=== PATIENT | female | born 1950 | race Caucasian/White ===

== ENCOUNTER 2016-08-04 13:15 | Observation (INO) | payer BC, MEDICARE ==
[2016-08-04] MEDS ORDERED: Sodium Chloride 0.9% 2.5 ML Syringe FLUSH PRN (13:29)
[2016-08-04] MEDS ORDERED: Sodium Chloride 0.9% 10 ML Syringe FLUSH PRN (13:29)
[2016-08-04] MEDS ORDERED: Sodium Chloride 0.9% 500 ML IV SCH (13:30)
--- NOTE | 2016-08-04 13:32 | EDM.PDOC ---
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 Past medical history: As per history of present illness and as reviewed below otherwise noncontributory. Surgical history: As per history of present illness and as reviewed below otherwise noncontributory. Social history: No reported history of drug or alcohol abuse. Family history: As per history of present illness and as reviewed below otherwise noncontributory. Physical exam: HEENT: Atraumatic, normocephalic, pupils reactive, negative for conjunctival pallor or scleral icterus, mucous membranes moist, throat clear, neck supple, nontender, trachea midline. Lungs: Clear to auscultation, breath sounds equal bilaterally, chest nontender. Heart: S1S2, regular, negative for clicks, rubs, or JVD. Abdomen: Soft, nondistended, nontender. Negative for masses or hepatosplenomegaly. Negative for costovertebral tenderness. Pelvis: Stable nontender. Genitourinary: Deferred. Rectal: Deferred. Extremities: Atraumatic, negative for cords or calf pain. Neurovascular unremarkable. Neuro: Awake, alert, oriented. Cranial nerves II through XII unremarkable. Cerebellum unremarkable. Motor and sensory unremarkable throughout. Exam nonfocal. Diagnostics: CBC CMP PT/INR troponin EKG chest x-ray urine drug screen UA orthostatic vital signs Therapeutics: IV O2 monitor Impression: #1 near syncope #2 history of aortic stenosis #3 generalized weakness Definitive disposition and diagnosis as appropriate pending reevaluation and review of above. - Related Data Allergies Allergy/AdvReac Type Severity Reaction Status Date / Time No Known Allergies Allergy Unverified 08/04/16 13:26 Home Meds: Home Meds Hydrochlorothiazide 25 mg PO DAILY 02/25/15 [History] Latanoprost [Xalatan 0.005% Ophth Soln] 1 drop EYEBOTH BEDTIME 02/25/15 [History ] Hydrocodone/Acetaminophen [Allamuchy 5-325 Tablet] 1 each PO QID #30 tablet [Rx] Past Medical History HEENT History: Reports: Cataract, Impaired Vision, Retinal Detachment Other HEENT History: wears glasses, HX of Lichen Sclerosus Other Cardiovascular History: hx of aortic stenosis, moderate- asymptomatic Respiratory History: Reports: PE Other Respiratory History: states had PE following hysterectomy Gastrointestinal History: Reports: Cholelithiasis, Other (See Below) Other Gastrointestinal History: states occasional heartburn, takes TUMS Genitourinary History: Reports: Renal Calculus Other Genitourinary History: states passed kidney stone 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 Leonardo Raymundo in [facility] that her neck was "unstable" Neurological History: Reports: Other (See Below) Other Neuro History: occas. headaches/migranes...no treatment Psychiatric History: Reports: None Oncologic (Cancer) History: Reports: Breast Dermatologic History: Reports: Psoriasis Other Dermatologic History: states psoriasis is "mild" - Past Surgical History HEENT Surgical History: Reports: Cataract Surgery, Detached Retina Female Surgical History: Reports: Breast Biopsy, Section, Hysterectomy Social & Family History - Family History Family Medical History: Noncontributory - Tobacco Use Smoking Status *Q: Never Smoker - Recreational Drug Use Recreational Drug Use: No Drug Use in Last 12 Months: No ED ROS GENERAL - Review of Systems Review Of Systems: ROS reveals no pertinent complaints other than HPI. ED EXAM, GENERAL - Physical Exam Exam: See Below (See dictation) Course - Vital Signs Last Recorded V/S: Last Vital Signs Temp 36.7 C 08/04/16 13:26 Pulse 99 08/04/16 13:26 Resp 20 08/04/16 13:26 BP 193/91 H 08/04/16 13:26 Pulse Ox 98 08/04/16 13:26 Orthostatic Blood Pressure [ 176/77 Standing] Orthostatic Blood Pressure [ 150/72 Sitting] Orthostatic Blood Pressure [ 156/73 Supine] - Orders/Labs/Meds Orders: Active Orders 24 hr Category Date Time Status Patient Status [ADT] Stat ADT 08/04/16 15:04 Ordered Cardiac Monitoring [RC] . DIRECTED Care 08/04/16 13:28 Active EKG Documentation Completion [RC] STAT Care 08/04/16 13:28 Active Orthostatic Vital Signs [RC] ASDIRECTED Care 08/04/16 13:32 Active Oxygen Therapy, ED [RC] ASDIRECTED Care 08/04/16 13:28 Active Head wo Cont [CT] Stat Exams 08/04/16 13:28 Taken CULTURE URINE [RM] Stat Lab 08/04/16 15:03 Uncollected Sodium Chloride 0.9% [Normal Saline] 500 ml Med 08/04/16 13:30 Active IV STAT Sodium Chloride 0.9% [Saline Flush] Med 08/04/16 13:29 Active 10 ml FLUSH ASDIRECTED PRN Sodium Chloride 0.9% [Saline Flush] Med 08/04/16 13:29 Active 2.5 ml FLUSH ASDIRECTED PRN cefTRIAXone [Rocephin in Dextrose,Iso-Osm 1 GM/50 ML] 1 Med 08/04/16 15:04 Ordered gm Premix Bag 1 bag IV ONETIME Saline Lock Insert [OM.PC] Stat Oth 08/04/16 13:28 Ordered Medication Orders Sodium Chloride (Normal Saline) 500 mls @ 999 mls/hr IV STAT FRANKY Last Admin: 08/04/16 13:50 Dose: 999 mls/hr Ceftriaxone Sodium/Dextrose 1 (gm/ Premix) 50 mls @ 100 mls/hr IV ONETIME ONE Stop: 08/04/16 15:33 Sodium Chloride (Saline Flush) 10 ml FLUSH ASDIRECTED PRN PRN Reason: Keep Vein Open Sodium Chloride (Saline Flush) 2.5 ml FLUSH ASDIRECTED PRN PRN Reason: Keep Vein Open Labs: Laboratory Tests 08/04/16 08/04/16 08/04/16 Range/Units 13:25 13:25 13:25 WBC 9.80 (4.0-11.0) K/uL RBC 5.21 (4.30-5.90) M/uL Hgb 16.1 H (12.0-16.0) g/dL Hct 45.8 (36.0-46.0) % MCV 87.9 (80.0-98.0) fL MCH 30.9 (27.0-32.0) pg MCHC 35.2 (31.0-37.0) g/dL RDW Std Deviation 42.3 (28.0-62.0) fl RDW Coeff of [place] 13 (11.0-15.0) % Plt Count 202 (150-400) K/uL MPV 10.60 (7.40-12.00) fL Neut % (Auto) 71.7 (48.0-80.0) % Lymph % (Auto) 20.8 (16.0-40.0) % [place] % (Auto) 6.3 (0.0-15.0) % Eos % (Auto) 1.0 (0.0-7.0) % Baso % (Auto) 0.2 (0.0-1.5) % Neut # (Auto) 7.0 H (1.4-5.7) K/uL Lymph # (Auto) 2.0 (0.6-2.4) K/uL [place] # (Auto) 0.6 (0.0-0.8) K/uL Eos # (Auto) 0.1 (0.0-0.7) K/uL Baso # (Auto) 0.0 (0.0-0.1) K/uL Nucleated RBC % 0.0 /100WBC Nucleated RBCs # 0 K/uL INR 0.95 (0.86-1.11) Sodium 139 (136-146) mmol/L Potassium 3.8 (3.5-5.1) mmol/L Chloride 106 (98-110) mmol/L Carbon Dioxide 23 (21-31) mmol/L BUN 18 (6.0-23.0) mg/dL Creatinine 0.9 (0.6-1.5) mg/dL Est Cr Clr Drug Dosing 43.57 mL/min Estimated GFR (MDRD) > 60.0 ml/min Glucose 96 (60-110) mg/dL Calcium 9.3 (8.8-10.8) mg/dL Total Bilirubin 0.8 (0.1-1.5) mg/dL AST 19 (5-40) IU/L ALT 18 (8-54) IU/L Alkaline Phosphatase 61 (40-150) Troponin I (0.0-0.29) NG/ML Total Protein 7.4 (6.0-8.0) g/dL Albumin 4.3 (3.4-4.8) g/dL Globulin 3.1 (2.0-3.5) g/dL Albumin/Globulin Ratio 1.4 (1.3-2.8) Urine Color Urine Appearance Urine pH (5.0-8.0) Ur Specific [place] (1.001-1.035) Urine Protein (NEGATIVE) mg/dL Urine Glucose (UA) (NEGATIVE) mg/dL Urine Ketones (NEGATIVE) mg/dL Urine Occult Blood (NEGATIVE) Urine Nitrite (NEGATIVE) Urine Bilirubin (NEGATIVE) Urine Urobilinogen (<2.0) EU/dL Ur Leukocyte Esterase (NEGATIVE) Urine RBC (0-2/HPF) Urine WBC (0-5/HPF) Ur Epithelial Cells (NONE-FEW) Urine Bacteria (NEGATIVE) Urine Opiates Screen (NEGATIVE) Ur Oxycodone Screen (NEGATIVE) Urine Methadone Screen (NEGATIVE) Ur Barbiturates Screen (NEGATIVE) Ur Phencyclidine Scrn (NEGATIVE) Ur Amphetamine Screen (NEGATIVE) U Methamphetamines Scrn (NEGATIVE) U Benzodiazepines Scrn (NEGATIVE) U Cocaine Metab Screen (NEGATIVE) U Marijuana (THC) Screen (NEGATIVE) 08/04/16 08/04/16 08/04/16 Range/Units 13:25 13:48 13:48 WBC (4.0-11.0) K/uL RBC (4.30-5.90) M/uL Hgb (12.0-16.0) g/dL Hct (36.0-46.0) % MCV (80.0-98.0) fL MCH (27.0-32.0) pg MCHC (31.0-37.0) g/dL RDW Std Deviation (28.0-62.0) fl RDW Coeff of [place] (11.0-15.0) % Plt Count (150-400) K/uL MPV (7.40-12.00) fL Neut % (Auto) (48.0-80.0) % Lymph % (Auto) (16.0-40.0) % [place] % (Auto) (0.0-15.0) % Eos % (Auto) (0.0-7.0) % Baso % (Auto) (0.0-1.5) % Neut # (Auto) (1.4-5.7) K/uL Lymph # (Auto) (0.6-2.4) K/uL [place] # (Auto) (0.0-0.8) K/uL Eos # (Auto) (0.0-0.7) K/uL Baso # (Auto) (0.0-0.1) K/uL Nucleated RBC % /100WBC Nucleated RBCs # K/uL INR (0.86-1.11) Sodium (136-146) mmol/L Potassium (3.5-5.1) mmol/L Chloride (98-110) mmol/L Carbon Dioxide (21-31) mmol/L BUN (6.0-23.0) mg/dL Creatinine (0.6-1.5) mg/dL Est Cr Clr Drug Dosing mL/min Estimated GFR (MDRD) ml/min Glucose (60-110) mg/dL Calcium (8.8-10.8) mg/dL Total Bilirubin (0.1-1.5) mg/dL AST (5-40) IU/L ALT (8-54) IU/L Alkaline Phosphatase (40-150) Troponin I < 0.10 (0.0-0.29) NG/ML Total Protein (6.0-8.0) g/dL Albumin (3.4-4.8) g/dL Globulin (2.0-3.5) g/dL Albumin/Globulin Ratio (1.3-2.8) Urine Color YELLOW Urine Appearance CLEAR Urine pH 5.5 (5.0-8.0) Ur Specific [place] 1.025 (1.001-1.035) Urine Protein 30 (NEGATIVE) mg/dL Urine Glucose (UA) NEGATIVE (NEGATIVE) mg/dL Urine Ketones NEGATIVE (NEGATIVE) mg/dL Urine Occult Blood SMALL H (NEGATIVE) Urine Nitrite NEGATIVE (NEGATIVE) Urine Bilirubin NEGATIVE (NEGATIVE) Urine Urobilinogen 0.2 (<2.0) EU/dL Ur Leukocyte Esterase MODERATE (NEGATIVE) Urine RBC 4-6 (0-2/HPF) Urine WBC 20-25 (0-5/HPF) Ur Epithelial Cells FEW (NONE-FEW) Urine Bacteria FEW (NEGATIVE) Urine Opiates Screen NEGATIVE (NEGATIVE) Ur Oxycodone Screen NEGATIVE (NEGATIVE) Urine Methadone Screen NEGATIVE (NEGATIVE) Ur Barbiturates Screen NEGATIVE (NEGATIVE) Ur Phencyclidine Scrn NEGATIVE (NEGATIVE) Ur Amphetamine Screen NEGATIVE (NEGATIVE) U Methamphetamines Scrn NEGATIVE (NEGATIVE) U Benzodiazepines Scrn NEGATIVE (NEGATIVE) U Cocaine Metab Screen NEGATIVE (NEGATIVE) U Marijuana (THC) Screen NEGATIVE (NEGATIVE) Meds: Medications Generic Name Dose Route Start Last Admin Trade Name Freq PRN Reason Stop Dose Admin Sodium Chloride 500 mls @ 999 mls/hr 08/04/16 13:30 08/04/16 13:50 Normal Saline IV 999 mls/hr STAT FRANKY Administration Ceftriaxone Sodium/Dextrose 1 50 mls @ 100 mls/hr 08/04/16 15:04 gm/ Premix IV 08/04/16 15:33 ONETIME ONE Sodium Chloride 10 ml 08/04/16 13:29 Saline Flush FLUSH ASDIRECTED PRN Keep Vein Open Sodium Chloride 2.5 ml 08/04/16 13:29 Saline Flush FLUSH ASDIRECTED PRN Keep Vein Open Departure - Departure Time of Disposition: 15:05 Disposition: Refer to Observation Condition: Good Clinical Impression: Near syncope, UTI (urinary tract infection), Generalized weakness Forms: ED Department Discharge - My Orders Last 24 Hours: My Active Orders 08/04/16 13:28 Cardiac Monitoring [RC] . DIRECTED EKG Documentation Completion [RC] STAT Oxygen Therapy, ED [RC] ASDIRECTED Head wo Cont [CT] Stat Saline Lock Insert [OM.PC] Stat 08/04/16 13:29 Sodium Chloride 0.9% [Saline Flush] 10 ml FLUSH ASDIRECTED PRN Sodium Chloride 0.9% [Saline Flush] 2.5 ml FLUSH ASDIRECTED PRN 08/04/16 13:30 Sodium Chloride 0.9% [Normal Saline] 500 ml IV STAT 08/04/16 13:32 Orthostatic Vital Signs [RC] ASDIRECTED 08/04/16 15:03 CULTURE URINE [RM] Stat 08/04/16 15:04 Patient Status [ADT] Stat cefTRIAXone [Rocephin in Dextrose,Iso-Osm 1 GM/50 ML] 1 gm Premix Bag 1 bag IV ONETIME - Assessment/Plan Last 24 Hours: My Active Orders 08/04/16 13:28 Cardiac Monitoring [RC] . DIRECTED EKG Documentation Completion [RC] STAT Oxygen Therapy, ED [RC] ASDIRECTED Head wo Cont [CT] Stat Saline Lock Insert [OM.PC] Stat 08/04/16 13:29 Sodium Chloride 0.9% [Saline Flush] 10 ml FLUSH ASDIRECTED PRN Sodium Chloride 0.9% [Saline Flush] 2.5 ml FLUSH ASDIRECTED PRN 08/04/16 13:30 Sodium Chloride 0.9% [Normal Saline] 500 ml IV STAT 08/04/16 13:32 Orthostatic Vital Signs [RC] ASDIRECTED 08/04/16 15:03 CULTURE URINE [RM] Stat 08/04/16 15:04 Patient Status [ADT] Stat cefTRIAXone [Rocephin in Dextrose,Iso-Osm 1 GM/50 ML] 1 gm Premix Bag 1 bag IV ONETIME
[2016-08-04 14:01] LABS: CHLORIDE,CL 106 mmol/L (98-110); SODIUM,NA 139 mmol/L (136-146)
--- NOTE | 2016-08-04 14:33 | CR ---
EXAMINATION: Portable chest radiograph. HISTORY: Shortness of breath. FINDINGS: The trachea is midline. The cardiomediastinal silhouette is within normal limits. No pulmonary infil trates, effusions or pneumothorax. Osseous structures appear unremarkable. IMPRESSION: No acute cardiopulmonary process.
[2016-08-04] MEDS ORDERED: cefTRIAXone 1 GM in Premix Bag 1 BAG IV SCH (15:00)
[2016-08-04] MEDS ORDERED: cefTRIAXone 1 GM in Premix Bag 1 BAG IV ONE (15:04)
--- NOTE | 2016-08-04 15:14 | CT ---
EXAMINATION: Non contrast CT head. Coronal and sagittal reformats. HISTORY: Pain FINDINGS: There is an approximate 2.1 cm right frontal mass anteriorly and medially. There is adjacent white m atter gliosis. Ventricles and sulci are symmetric. No hypoattenuation changes in the major vascular territories to suggest acute infarct. No abnormal intracranial calcifications are detected. No evidence of substantial vascular calcifica tions. Paranasal sinuses and mastoid air cells are well aerated without substantial findings. The orbits a nd globes are symmetric. Pituitary fossa appears unremarkable. Calvarium is intact. No evidence of skull fracture. IMPRESSION: 1. There is a 2.1 cm right frontal lobe mass with adjacent gliosis. 2. Otherwise no acute intracranial findings.
--- NOTE | 2016-08-04 17:08 | PCM.HP ---
H&P History of Present Illness - History of Present Illness Initial Comments - Free Text/Narative: 65 yo female who presented with dizziness. At an office libertarian while standing she felt dizzy and lightheaded. She had some confusion and was unable to move. Coworkers helped her to her car and drove her to the ED. IN the ED she was noted to have stable vital signs, normal orthostatic vital signs. CT of her head reported 2 cm mass in right frontal lobe She has a history of breast cancer a year ago with masterctomy and hormonal therapy. She had an Echocardiogram in Jan 2015 which reported LVEF of 65% and moderate aortic stenossi - Related Data Allergies/Adverse Reactions: Allergies Allergy/AdvReac Type Severity Reaction Status Date / Time No Known Allergies Allergy Unverified 08/04/16 13:26 Home Medications: Home Meds Hydrochlorothiazide 25 mg PO DAILY 02/25/15 [History] Latanoprost [Xalatan 0.005% Ophth Soln] 1 drop EYEBOTH BEDTIME 02/25/15 [History ] Alendronate [Fosamax] 1 tab PO WEEKLY 08/04/16 [History] Anastrozole [Arimidex] 1 tab PO DAILY 08/04/16 [History] Celecoxib 200 mg PO DAILY PRN 08/04/16 [History] Cephalexin [Keflex] 500 mg PO Q12H #12 capsule 08/05/16 [Rx] Past Medical History HEENT History: Reports: Cataract, Impaired Vision, Retinal Detachment Other HEENT History: wears glasses, HX of Lichen Sclerosus Cardiovascular History: Reports: Hypertension Other Cardiovascular History: hx of aortic stenosis, moderate- asymptomatic Respiratory History: Reports: PE Other Respiratory History: states had PE following hysterectomy Gastrointestinal History: Reports: Cholelithiasis, Other (See Below) Other Gastrointestinal History: states occasional heartburn, takes TUMS Genitourinary History: Reports: Renal Calculus Other Genitourinary History: states passed kidney stone 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 Leonardo Raymundo in [facility] that her neck was "unstable" Neurological History: Reports: Other (See Below) Other Neuro History: occas. headaches/migranes...no treatment Psychiatric History: Reports: None Oncologic (Cancer) History: Reports: Breast Dermatologic History: Reports: Psoriasis Other Dermatologic History: states psoriasis is "mild" - Past Surgical History Head Surgeries/Procedures: Reports: None HEENT Surgical History: Reports: Cataract Surgery, Detached Retina Female Surgical History: Reports: Breast Biopsy, Section, Hysterectomy Social & Family History - Family History Family Medical History: Noncontributory - Tobacco Use Smoking Status *Q: Never Smoker Second Hand Smoke Exposure: No - Caffeine Use Caffeine Use: Reports: Coffee - Recreational Drug Use Recreational Drug Use: No Drug Use in Last 12 Months: No H&P Review of Systems - Review of Systems: Review Of Systems: ROS reveals no pertinent complaints other than HPI. Exam - Exam Exam: See Below - Vital Signs Vital Signs: Last Vital Signs Temp 36.4 C 08/04/16 16:30 Pulse 72 08/04/16 16:30 Resp 18 08/04/16 16:30 BP 157/77 H 08/04/16 16:30 Pulse Ox 96 08/04/16 16:30 Weight: 70.715 kg - Exam General: Alert, Oriented, 4 Neck: Supple, Trachea Midline. No: JVD Lungs: Clear to Auscultation, Normal Respiratory Effort Cardiovascular: Regular Rate, Regular Rhythm Abdomen: Normal Bowel Sounds, Soft Extremities: Normal Inspection Skin: Warm, Dry, Intact Neurological: Cranial Nerves Intact, Reflexes Equal Bilateral - Patient Data Result Diagrams: 08/04/16 13:25 08/04/16 13:25 *Q Meaningful Use (ADM) - VTE *Q VTE Criteria *Q: - Stroke *Q Stroke Criteria *Q: - AMI *Q AMI Criteria *Q: Problem List Initiated/Reviewed/Updated: Yes Orders Last 24hrs: Active Orders 24 hr Category Date Time Status Antiembolic Devices [RC] PER UNIT ROUTINE Care 08/04/16 16:58 Ordered Intake and Output [RC] QSHIFT Care 08/04/16 16:57 Ordered Oxygen Therapy [RC] PRN Care 08/04/16 16:57 Ordered Up ad Ramya [RC] ASDIRECTED Care 08/04/16 16:57 Ordered VTE/DVT Education [RC] PER UNIT ROUTINE Care 08/04/16 16:57 Ordered Vital Signs [RC] Q4H Care 08/04/16 16:57 Ordered Regular Diet [DIET] Diet 08/04/16 Breakfast Ordered Brain w wo Cont [MR] Routine Exams 08/04/16 16:21 Ordered Echo 2D wo Cont [US] Routine Exams 08/04/16 16:55 Ordered cefTRIAXone [Rocephin in Dextrose,Iso-Osm 1 GM/50 ML] 1 Med 08/04/16 15:00 Ordered gm Premix Bag 1 bag IV Q24H Sequential Compression Device [OM.PC] Per Unit Routine Oth 08/04/16 16:57 Ordered Resuscitation Status Routine Resus Stat 08/04/16 16:57 Ordered Medication Orders Sodium Chloride (Normal Saline) 500 mls @ 999 mls/hr IV STAT FRANKY Last Admin: 08/04/16 13:50 Dose: 999 mls/hr Ceftriaxone Sodium/Dextrose 1 (gm/ Premix) 50 mls @ 100 mls/hr IV Q24H FRANKY Sodium Chloride (Saline Flush) 10 ml FLUSH ASDIRECTED PRN PRN Reason: Keep Vein Open Sodium Chloride (Saline Flush) 2.5 ml FLUSH ASDIRECTED PRN PRN Reason: Keep Vein Open Assessment/Plan Comment:: 65 yo female admitted for near syncope. Symptoms do not appear to be seizure like. We will monitor overnight on telemetry and get echocardiogram. Patient has received Rocephin for UTI. Will get MRI to evaluated brain mass. MRI reports 3.4 cm dural based mass right frontal fossa consistent wiht meningioma, mild mass effect and edema within the right frontal lobe. no midline shift. Patient was monitored overnight without any events on telemetry and remains asymptomatic. We will discharge patient home to have follow up with Dr. Bell. Report from Echocardiogram is still pending. A referral to [facility] Neurosurgeon was made for follow up of the meningioma
[2016-08-04] MEDS ORDERED: LORazepam 0.5 MG Tab PO ONE (17:56)
[2016-08-04] MEDS ORDERED: Gadobenate Dimeglumine 529 MG/ML 20 ML SDV IVPUSH STA (18:33)
[2016-08-05 09:36] VITALS: BP 139/65
--- NOTE | 2016-08-05 13:31 | MR ---
EXAM DATE: 08/04/16 PATIENT'S AGE: 65 Patient: JOHN GOMEZ Facility: [place], [place] Site . Site : [id number] Study: MRI Head W/ and W/O Cont [id number]/29/2017 7:17:42 PM Ordering Physician: Elmer Galicia Final Report: Indication: 65-year-old female with intracranial mass. Technique: 3D T1 weighted gradient echo sequences before and after infusion of gadolinium contrast with sagittal axial and coronal reformatted images, axial 2D FLAIR, T2 , diffusion-weighted, susceptibility weighted images of the entire brain. Findings: There is a well circumscribed extra-axial mass in the right frontal fossa with a broad dural base along the anterior falx as well as the anterior convexity dura. This mass measures 3.4 cm cephalocaudal by 2.2 cm transverse by 2.2 cm in AP dimension. It enhances intensely with contrast material, slightly brighter than brain on T2 FLAIR and relatively hypointense on T1 weighted images. There is mass effect with buckling of the adjacent white matter enhancing dural tail with features consistent with meningioma. There is mild amount of adjacent edema extending back toward the frontal horn. There is slight deformity of the frontal horn of the but no midline shift. No hydrocephalus. The mass abuts but does not appear to invade the anterior most portion of the superior sagittal sinus. No other enhancing intra-axial or extra-axial lesions. No evidence of intracranial hemorrhage no evidence of acute infarction. The brainstem and cerebellum appear normal. The orbits and skull base are unremarkable there is some inflammatory mucosal thickening in the maxillary sinuses. Impression : 1. 3.4 cm maximal diameter extra-axial, dural based mass right frontal fossa consistent with meningioma likely attached to the anterior falx and/or convexity dura. 2. Mild mass effect and edema within the right frontal lobe. No midline shift. This report is transcribed using [id number] software. As a result there may be grammatical errors and/or unintentional word substitutions. Dictated by Gurjit Victoria MD @ Aug 05 2016 8:48AM (Electronic Signature) Report Signed by Proxy. EFRAIN
--- NOTE | 2016-08-11 11:49 | ECHO ---
EXAM DATE: 08/04/16 PATIENT'S AGE: 65 The echocardiogram report can be seen in this patient's EMR (Electronic Medical Records) in the Reports section. The report has also been scanned into PACS. EFRAIN
== END 2016-08-05 11:15 | disposition home or self-care (01) ==
LOC: MW.ED 13:15 → MW.MS 16:08
PROVIDERS: ADMIT Internal Medicine; ATTEND Internal Medicine
DX: R55 Syncope and collapse (principal); N39.0 Urinary tract infection, site not specified; R22.0 Localized swelling, mass and lump, head; I10 Essential (primary) hypertension; M19.90 Unspecified osteoarthritis, unspecified site; Z79.811 Long term (current) use of aromatase inhibitors; Z79.899 Other long term (current) drug therapy; Z85.3 Personal history of malignant neoplasm of breast; Z86.711 Personal history of pulmonary embolism; Z87.442 Personal history of urinary calculi; Z90.710 Acquired absence of both cervix and uterus; Z98.890 Other specified postprocedural states
CPT/HCPCS: 36415; 70450; 70553; 71010; 80053; 80305; 81001; 84484; 85025; 85610; 87086; 93005; 93306; 96365; 99285; A9270; A9577; G0378; J0696; J7040

== ENCOUNTER 2018-02-21 11:19 | Emergency (ER) | payer MEDICARE, BC ==
--- NOTE | 2018-02-21 11:23 | EDM.PDOC ---
ED HPI GENERAL MEDICAL PROBLEM - General Chief Complaint: Upper Extremity Injury/Pain Stated Complaint: SWOLLEN RIGHT HAND Time Seen by Provider: 02/21/18 11:21 Source of Information: Reports: Patient History Limitations: Reports: No Limitations - History of Present Illness INITIAL COMMENTS - FREE TEXT/NARRATIVE: HISTORY AND PHYSICAL: Right wrist injury History of present illness: Patient is a 67-year-old female who presents to the emergency room with complaints of right wrist pain. Patient states that while trying to get out of bed she had slipped onto the floor and had reached out with her right hand to catch herself. She denies hitting her head or any loss of consciousness. Soft tissue swelling, pain with palpation and ROM. Review of systems: As per history of present illness and below otherwise all systems reviewed and negative. Past medical history: As per history of present illness and as reviewed below otherwise noncontributory. Surgical history: As per history of present illness and as reviewed below otherwise noncontributory. Social history: See social history for further information Family history: As per history of present illness and as reviewed below otherwise noncontributory. Physical exam: General: Well-developed and well-nourished 67-year-old female. Alert and oriented. Nontoxic appearing and in no acute distress. HEENT: Atraumatic, normocephalic, pupils equal and reactive bilaterally, negative for conjunctival pallor or scleral icterus, mucous membranes moist, throat clear, neck supple, nontender, trachea midline. No drooling or trismus noted. No meningeal signs Lungs: Clear to auscultation, breath sounds equal bilaterally, chest nontender. Heart: S1S2, regular rate and rhythm without overt murmur Abdomen: Soft, nondistended, nontender. Negative for masses or hepatosplenomegaly. Negative for costovertebral tenderness. Pelvis: Stable nontender. Genitourinary: Deferred. Rectal: Deferred. Skin: Soft tissue swelling and early bruising noted to the radial aspect of right wrist. Otherwise skin is intact, warm, dry. No lesions or rashes noted. Extremities: Soft tissue swelling noted to the radial aspect of the right wrist. Pain with palpation throughout the radial and ulnar aspect of the wrist. Strong radial pulse. Capillary refill less than 3 seconds. Good CMS. Strong and equal strength to the upper extremity bilaterally. She is negative for cords or calf pain. Neurovascular unremarkable. Neuro: Awake, alert, oriented. Cranial nerves II through XII unremarkable. Cerebellum unremarkable. Motor and sensory unremarkable throughout. Exam nonfocal. Notes: X-ray shows likely a nondisplaced distal radial fracture however possibly old. The alignment is normal and otherwise spacing and joints are preserved. Due to the patient's tenderness and soft tissue swelling and to treat as a new fracture. Fiberglass custom splint applied. Fitted with a sling. Supportive care measures were reviewed and discussed. I did encourage the patient to call today, to set up a follow-up appointment with the orthopedic provider. She voices understanding and is agreeable to plan of care. Denies any further questions or concerns at this time. Diagnostics: X-ray Therapeutics: Toradol Prescription: Tramadol (#15) Impression: Nondisplaced distal radius fracture, right Plan: 1. Please keep the splint on and use the sling to keep the extremity elevated. Rest and ice the area as able. 2. Tylenol and/or ibuprofen as needed for pain management. Tramadol for nighttime use. This medication may cause drowsiness so do not take it will driving her needing to be functioning outside of the house. 3. Please call the orthopedic provider today to set up a follow-up appointment. Return to the ED as needed and as discussed. Definitive disposition and diagnosis as appropriate pending reevaluation and review of above. Onset: Today Duration: Hour(s): - Related Data Allergies Allergy/AdvReac Type Severity Reaction Status Date / Time No Known Allergies Allergy Verified 02/21/18 11:32 Home Meds: Home Meds Hydrochlorothiazide 25 mg PO DAILY 02/25/15 [History] Latanoprost [Xalatan 0.005% Ophth Soln] 1 drop EYEBOTH BEDTIME 02/25/15 [History ] Alendronate [Fosamax] 1 tab PO WEEKLY 08/04/16 [History] Anastrozole [Arimidex] 1 tab PO DAILY 08/04/16 [History] Celecoxib 200 mg PO DAILY PRN 08/04/16 [History] Cephalexin [Keflex] 500 mg PO Q12H #12 capsule 08/05/16 [Rx] Past Medical History HEENT History: Reports: Cataract, Impaired Vision, Retinal Detachment Other HEENT History: wears glasses, HX of Lichen Sclerosus Cardiovascular History: Reports: Hypertension Other Cardiovascular History: hx of aortic stenosis, moderate- asymptomatic Respiratory History: Reports: PE Other Respiratory History: states had PE following hysterectomy Gastrointestinal History: Reports: Cholelithiasis, Other (See Below) Other Gastrointestinal History: states occasional heartburn, takes TUMS Genitourinary History: Reports: Renal Calculus Other Genitourinary History: states passed kidney stone NEUROLOGY TECH History: Reports: Musculoskeletal History: Reports: Arthritis, Fracture, Neck Pain, Chronic, Osteoarthritis Other Musculoskeletal History: states osteoarthritis of of hip, degenerative disc disease of neck, hx of bilateral fx wrists, was told by Dr. Leonardo Raymundo in [facility] that her neck was "unstable" Neurological History: Reports: Other (See Below) Other Neuro History: occas. headaches/migranes...no treatment Psychiatric History: Reports: None Oncologic (Cancer) History: Reports: Breast Dermatologic History: Reports: Psoriasis Other Dermatologic History: states psoriasis is "mild" - Past Surgical History Head Surgeries/Procedures: Reports: None HEENT Surgical History: Reports: Cataract Surgery, Detached Retina Female Surgical History: Reports: Breast Biopsy, Section, Hysterectomy Social & Family History - Family History Family Medical History: Noncontributory - Caffeine Use Caffeine Use: Reports: Coffee Review of Systems - Review of Systems Review Of Systems: ROS reveals no pertinent complaints other than HPI. ED EXAM, GENERAL - Physical Exam Exam: See Below (See dictation) Course - Vital Signs Last Recorded V/S: Last Vital Signs Temp 97.5 F 02/21/18 11:29 Pulse 76 02/21/18 11:29 Resp 16 02/21/18 11:29 BP 153/66 H 02/21/18 11:29 Pulse Ox 99 02/21/18 11:29 - Orders/Labs/Meds Meds: Medications Discontinued Medications Generic Name Dose Route Start Last Admin Trade Name Freq PRN Reason Stop Dose Admin Ketorolac Tromethamine 30 mg 02/21/18 11:35 02/21/18 11:57 Toradol IM 02/21/18 11:36 30 mg ONETIME ONE Administration Ketorolac Tromethamine 30 mg 02/21/18 12:00 Toradol IM 02/21/18 12:01 ONETIME ONE Departure - Departure Time of Disposition: 12:09 Disposition: Home, Self-Care 01 Clinical Impression: Distal radius fracture, right Qualifiers: Encounter type: initial encounter Fracture type: closed Fracture morphology: unspecified fracture morphology Qualified Code(s): S52.501A - Unspecified fracture of the lower end of right radius, initial encounter for closed fracture - Discharge Information Forms: ED Department Discharge Additional Instructions: The following information is given to patients seen in the emergency department who are being discharged to home. This information is to outline your options for follow-up care. We provide all patients seen in our emergency department with a follow-up referral. The need for follow-up, as well as the timing and circumstances, are variable depending upon the specifics of your emergency department visit. If you don't have a primary care physician on staff, we will provide you with a referral. We always advise you to contact your personal physician following an emergency department visit to inform them of the circumstance of the visit and for follow-up with them and/or the need for any referrals to a consulting specialist. The emergency department will also refer you to a specialist when appropriate. This referral assures that you have the opportunity for follow-up care with a specialist. All of these measure are taken in an effort to provide you with optimal care, which includes your follow-up. Under all circumstances we always encourage you to contact your private physician who remains a resource for coordinating your care. When calling for follow-up care, please make the office aware that this follow-up is from your recent emergency room visit. If for any reason you are refused follow-up, please contact the [facility] Emergency Department at and asked to speak to the emergency department charge nurse. [facility] Specialty Care - Orthopedic Clinic Professional Building [address] [place] [address], [address] [place] [address] 1. Please keep the splint on and use the sling to keep the extremity elevated. Rest and ice the area as able. 2. Tylenol and/or ibuprofen as needed for pain management. Tramadol for nighttime use. This medication may cause drowsiness so do not take it will driving her needing to be functioning outside of the house. 3. Please call the orthopedic provider today to set up a follow-up appointment. Return to the ED as needed and as discussed.
[2018-02-21] MEDS ORDERED: Ketorolac 30 MG/ML SDV IM ONE ×2 (11:35→12:00)
[2018-02-21] MEDS ORDERED: Ketorolac 30 MG/ML SDV ONE (11:53)
--- NOTE | 2018-02-21 11:53 | CR ---
EXAMINATION: Right wrist HISTORY: Pain COMPARISON: None TECHNIQUE: 2 views FINDINGS/IMPRESSION: Likely a nondisplaced distal radius fracture however possibly old. The radiocarpal alignment is normal. Bone mineralization and joint spaces are otherwise preserved.
[2018-02-21 12:41] VITALS: BP 135/63
== END 2018-02-21 12:41 | disposition home or self-care (01) ==
LOC: MW.ED 11:19
DX: S52.501A Unspecified fracture of the lower end of right radius, initial encounter for closed fracture (principal); I10 Essential (primary) hypertension; Z79.899 Other long term (current) drug therapy; W01.0XXA Fall on same level from slipping, tripping and stumbling without subsequent striking against object, initial encounter
CPT/HCPCS: 29125; 73100; 96372; 99283; J1885

== ENCOUNTER 2018-12-07 18:33 | Emergency (ER) | payer MEDICARE, BC ==
[2018-12-07] MEDS ORDERED: Sodium Chloride 0.9% 2.5 ML Syringe FLUSH PRN (18:52)
[2018-12-07] MEDS ORDERED: Sodium Chloride 0.9% 10 ML Syringe FLUSH PRN (18:52)
--- NOTE | 2018-12-07 19:33 | EDM.PDOC ---
ED HPI GENERAL MEDICAL PROBLEM - General Chief Complaint: Chest Pain Stated Complaint: heart burn Time Seen by Provider: 12/07/18 19:32 Source of Information: Reports: Patient History Limitations: Reports: No Limitations - History of Present Illness INITIAL COMMENTS - FREE TEXT/NARRATIVE: HISTORY AND PHYSICAL: History of present illness: Patient is a 67-year-old female presents to the ED with complaint of cough x 1 week. Patient had a heart valve replacement in [place] 2 weeks ago. She states she developed a cough shortly after coming home. She saw her primary care provider this past week and had normal labs and negative chest x-ray. She states an echo was done which was also normal. She denies shortness of breath, lower extremity swelling, hemoptysis, calf pain, abdominal pain, nausea, vomiting. She states she has been having some pain on med and right side of her chest that she attributes to the coughing. Review of systems: As per history of present illness and below otherwise all systems reviewed and negative. Past medical history: As per history of present illness and as reviewed below otherwise noncontributory. Surgical history: As per history of present illness and as reviewed below otherwise noncontributory. Social history: No reported history of drug or alcohol abuse. Family history: As per history of present illness and as reviewed below otherwise noncontributory. Physical exam: General: Patient sitting comfortably in no acute distress and nontoxic appearing HEENT: Atraumatic, normocephalic, pupils reactive, negative for conjunctival pallor or scleral icterus, mucous membranes moist, throat clear, neck supple, nontender, trachea midline. No meningeal signs. Lungs: Clear to auscultation, breath sounds equal bilaterally, chest nontender. Right chest wall tenderness to palpation. Heart: S1S2, regular, negative for clicks, rubs, or overt murmur. Abdomen: Soft, nondistended, nontender. Negative for masses or hepatosplenomegaly. Negative for costovertebral tenderness. No rigidity, rebound , guarding. Pelvis: Stable nontender. Genitourinary: Deferred. Rectal: Deferred. Extremities: Atraumatic, negative for cords or calf pain. Neurovascular unremarkable. Neuro: Awake, alert, oriented. Cranial nerves II through XII unremarkable. Cerebellum unremarkable. Motor and sensory unremarkable throughout. Exam nonfocal. Notes: I advised patient that she should stay for observation for chest pain rule out ACS. Patient declines admission at this time and understands my concerns and risks of this including NM or . Diagnostics: CBC, CMP, troponin, EKG, CXR Therapeutics: none Prescriptions: Azithromycin Ventolin inhaler Phenergan with codeine Impression: Cough, bronchitis, chest pain Plan: Take medications as instructed Follow up with primary care provider Return to ED As needed as discussed Definitive disposition and diagnosis as appropriate pending reevaluation and review of above. Chest Pain Score (Numeric/FACES): 3 - Related Data Allergies Allergy/AdvReac Type Severity Reaction Status Date / Time No Known Allergies Allergy Verified 12/07/18 18:53 Home Meds: Home Meds Albuterol [Ventolin HFA] 1 puff INH Q4H #1 inhaler 12/07/18 [Rx] Amiodarone [Cordarone] 200 mg PO BID 12/07/18 [History] Azithromycin [Zithromax] 250 mg PO ASDIRECTED #1 dosepk 12/07/18 [Rx] Codeine/Promethazine [Phenergan with Codeine] 5 ml PO Q6HR #1 cup 12/07/18 [Rx] Hydrocodone/Acetaminophen [Hydrocodon-Acetaminophen 5-325] 1 each PO ASDIRECTED 12/07/18 [History] Magnesium Oxide 400 mg PO ASDIRECTED 12/07/18 [History] Metoprolol Succinate [Kapsp[place] Sprinkle] 100 mg PO ASDIRECTED 12/07/18 [History ] Potassium Chloride 20 meq PO ASDIRECTED 12/07/18 [History] Warfarin [Coumadin] 2 mg PO DAILY 12/07/18 [History] Past Medical History HEENT History: Reports: Cataract, Impaired Vision, Retinal Detachment Other HEENT History: wears glasses, HX of Lichen Sclerosus Cardiovascular History: Reports: Hypertension Other Cardiovascular History: hx of aortic stenosis, moderate- asymptomatic Respiratory History: Reports: PE Other Respiratory History: states had PE following hysterectomy Gastrointestinal History: Reports: Cholelithiasis, Other (See Below) Other Gastrointestinal History: states occasional heartburn, takes TUMS Genitourinary History: Reports: Renal Calculus Other Genitourinary History: states passed kidney stone 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 Leonardo Raymundo in [facility] that her neck was "unstable" Neurological History: Reports: Other (See Below) Other Neuro History: occas. headaches/migranes...no treatment Psychiatric History: Reports: None Oncologic (Cancer) History: Reports: Breast Dermatologic History: Reports: Psoriasis Other Dermatologic History: states psoriasis is "mild" - Infectious Disease History Infectious Disease History: Reports: Chicken Pox - Past Surgical History Head Surgeries/Procedures: Reports: None HEENT Surgical History: Reports: Cataract Surgery, Detached Retina Cardiovascular Surgical History: Reports: Valve Replacement Other Cardiovascular Surgeries/Procedures: Aortic valve Female Surgical History: Reports: Breast Biopsy, Section, Hysterectomy Social & Family History - Family History Family Medical History: Noncontributory - Tobacco Use Smoking Status *Q: Never Smoker Second Hand Smoke Exposure: No - Caffeine Use Caffeine Use: Reports: Coffee - Recreational Drug Use Recreational Drug Use: No ED ROS GENERAL - Review of Systems Review Of Systems: ROS reveals no pertinent complaints other than HPI. ED EXAM, GENERAL - Physical Exam Exam: See Below (see dictation) Course - Vital Signs Last Recorded V/S: Last Vital Signs Temp 98.1 F 12/07/18 18:56 Pulse 78 12/07/18 18:56 Resp 20 12/07/18 18:56 BP 156/69 H 12/07/18 18:56 Pulse Ox 91 L 12/07/18 18:56 - Orders/Labs/Meds Orders: Active Orders 24 hr Category Date Time Status EKG Documentation Completion [RC] STAT Care 12/07/18 18:52 Active Sodium Chloride 0.9% [Saline Flush] Med 12/07/18 18:52 Active 10 ml FLUSH ASDIRECTED PRN Sodium Chloride 0.9% [Saline Flush] Med 12/07/18 18:52 Active 2.5 ml FLUSH ASDIRECTED PRN Saline Lock Insert [OM.PC] Stat Oth 12/07/18 18:52 Ordered Medication Orders Sodium Chloride (Saline Flush) 10 ml FLUSH ASDIRECTED PRN PRN Reason: Keep Vein Open Sodium Chloride (Saline Flush) 2.5 ml FLUSH ASDIRECTED PRN PRN Reason: Keep Vein Open Labs: Laboratory Tests 12/07/18 12/07/18 12/07/18 Range/Units 19:05 19:05 19:05 WBC 9.64 (4.0-11.0) K/uL RBC 4.24 L (4.30-5.90) M/uL Hgb 12.5 (12.0-16.0) g/dL Hct 37.1 (36.0-46.0) % MCV 87.5 (80.0-98.0) fL MCH 29.5 (27.0-32.0) pg MCHC 33.7 (31.0-37.0) g/dL RDW Std Deviation 42.2 (28.0-62.0) fl RDW Coeff of Ana Maria 13 (11.0-15.0) % Plt Count 294 (150-400) K/uL MPV 10.00 (7.40-12.00) fL Neut % (Auto) 78.6 (48.0-80.0) % Lymph % (Auto) 8.0 L (16.0-40.0) % Spencer % (Auto) 12.7 (0.0-15.0) % Eos % (Auto) 0.5 (0.0-7.0) % Baso % (Auto) 0.2 (0.0-1.5) % Neut # (Auto) 7.6 H (1.4-5.7) K/uL Lymph # (Auto) 0.8 (0.6-2.4) K/uL Spencer # (Auto) 1.2 H (0.0-0.8) K/uL Eos # (Auto) 0.1 (0.0-0.7) K/uL Baso # (Auto) 0.0 (0.0-0.1) K/uL Nucleated RBC % 0.0 /100WBC Nucleated RBCs # 0 K/uL INR 3.15 Sodium 137 (136-145) mmol/L Potassium 4.2 (3.5-5.1) mmol/L Chloride 100 (98-107) mmol/L Carbon Dioxide 24.9 (21.0-32.0) mmol/L BUN 7 (7.0-18.0) mg/dL Creatinine 0.9 (0.6-1.0) mg/dL Est Cr Clr Drug Dosing 42.38 mL/min Estimated GFR (MDRD) > 60.0 ml/min Glucose 109 H (74-106) mg/dL Calcium 8.7 (8.5-10.1) mg/dL Total Bilirubin 0.6 (0.2-1.0) mg/dL AST 53 H (15-37) IU/L ALT 62 (14-63) IU/L Alkaline Phosphatase 307 H (46-116) U/L Troponin I < 0.050 (0.000-0.056) ng/mL Total Protein 7.3 (6.4-8.2) g/dL Albumin 2.9 L (3.4-5.0) g/dL Globulin 4.4 H (2.6-4.0) g/dL Albumin/Globulin Ratio 0.7 L (0.9-1.6) Meds: Medications Generic Name Dose Route Start Last Admin Trade Name Freq PRN Reason Stop Dose Admin Sodium Chloride 10 ml 12/07/18 18:52 Saline Flush FLUSH ASDIRECTED PRN Keep Vein Open Sodium Chloride 2.5 ml 12/07/18 18:52 Saline Flush FLUSH ASDIRECTED PRN Keep Vein Open Departure - Departure Time of Disposition: 20:11 Disposition: Home, Self-Care 01 Condition: Good Clinical Impression: Cough, Bronchitis Prescriptions: Codeine/Promethazine [Phenergan with Codeine] 5 ml PO Q6HR #1 cup Albuterol [Ventolin HFA] 1 puff INH Q4H #1 inhaler Azithromycin [Zithromax] 250 mg PO ASDIRECTED #1 dosepk Referrals: PCP,None [Primary Care Provider] - Forms: ED Department Discharge Additional Instructions: The following information is given to patients seen in the emergency department who are being discharged to home. This information is to outline your options for follow-up care. We provide all patients seen in our emergency department with a follow-up referral. The need for follow-up, as well as the timing and circumstances, are variable depending upon the specifics of your emergency department visit. If you don't have a primary care physician on staff, we will provide you with a referral. We always advise you to contact your personal physician following an emergency department visit to inform them of the circumstance of the visit and for follow-up with them and/or the need for any referrals to a consulting specialist. The emergency department will also refer you to a specialist when appropriate. This referral assures that you have the opportunity for follow-up care with a specialist. All of these measure are taken in an effort to provide you with optimal care, which includes your follow-up. Under all circumstances we always encourage you to contact your private physician who remains a resource for coordinating your care. When calling for follow-up care, please make the office aware that this follow-up is from your recent emergency room visit. If for any reason you are refused follow-up, please contact the [facility] Emergency Department at and asked to speak to the emergency department charge nurse. [facility] Primary Care [address] [place] [address] [facility] [address] [place] [id number] Take medications as instructed Follow up with primary care provider Return to ED As needed as discussed - My Orders Last 24 Hours: My Active Orders 12/07/18 18:52 EKG Documentation Completion [RC] STAT Sodium Chloride 0.9% [Saline Flush] 10 ml FLUSH ASDIRECTED PRN Sodium Chloride 0.9% [Saline Flush] 2.5 ml FLUSH ASDIRECTED PRN Saline Lock Insert [OM.PC] Stat - Assessment/Plan Last 24 Hours: My Active Orders 12/07/18 18:52 EKG Documentation Completion [RC] STAT Sodium Chloride 0.9% [Saline Flush] 10 ml FLUSH ASDIRECTED PRN Sodium Chloride 0.9% [Saline Flush] 2.5 ml FLUSH ASDIRECTED PRN Saline Lock Insert [OM.PC] Stat
[2018-12-07 19:41] LABS: BLOOD UREA NITROGEN,BUN 7 mg/dL (7.0-18.0); CARBON DIOXIDE,CO2 24.9 mmol/L (21.0-32.0); CHLORIDE,CL 100 mmol/L (98-107); GLUCOSE RANDOM 109 mg/dL (74-106); POTASSIUM,K 4.2 mmol/L (3.5-5.1); SODIUM,NA 137 mmol/L (136-145)
--- NOTE | 2018-12-07 19:51 | CR ---
INDICATION: Aortic valve replacement 11/20/2018 TECHNIQUE: Chest 2 views. COMPARISON: 12/04/2018 FINDINGS: Cardiovascular and mediastinum: Heart size and vasculature are normal in caliber and appearance. Mediastinum is within normal limits. Sternotomy wires and prosthetic heart valve noted. Lungs and pleural spaces: Lungs are clear. No sign of infiltrate or mass. No sign of pleural effusion. No pneumothorax. Bones and soft tissues: No significant findings. IMPRESSION: Unremarkable chest. Dictated by Kingsley Das MD @ 12/07/2018 7:49:35 PM Dictated by: Kingsley Das MD @ 12/07/2018 19:49:41 (Electronically Signed)
[2018-12-07 20:47] VITALS: BP 119/80; PULSE 76
== END 2018-12-07 20:23 | disposition home or self-care (01) ==
LOC: MW.ED 18:33
DX: J40 Bronchitis, not specified as acute or chronic (principal); I10 Essential (primary) hypertension; Z79.899 Other long term (current) drug therapy
CPT/HCPCS: 36415; 71045; 71045-26; 80053; 84484; 85025; 85610; 93005; 99284-25

== ENCOUNTER 2019-09-18 19:03 | Emergency (ER) | payer MEDICARE, BC ==
[2019-09-18] MEDS ORDERED: Sodium Chloride 0.9% 2.5 ML Syringe FLUSH PRN (19:37)
[2019-09-18] MEDS ORDERED: Sodium Chloride 0.9% 10 ML Syringe FLUSH PRN (19:37)
[2019-09-18] MEDS ORDERED: Sodium Chloride 0.9% 1,000 ML IV ONE (19:37)
[2019-09-18] MEDS ORDERED: Lidocaine 5% 700 MG Patch TOP ONE (19:39)
[2019-09-18 20:04] LABS: CARBON DIOXIDE,CO2 27.8 mmol/L (21.0-32.0); POTASSIUM,K 3.5 mmol/L (3.5-5.1)
--- NOTE | 2019-09-18 20:59 | CT ---
INDICATION: Confusion TECHNIQUE: Head CT without contrast. COMPARISON: August 04, 2016 FINDINGS: CSF spaces: Within normal limits for age. Brain parenchyma: There are nonspecific low attenuation white matter changes consistent with chronic microvascular disease. No sign of mass, hemorrhage, or midline shift. Encephalomalacia within the right frontal lobe. Skull base and calvarium: The visualized paranasal sinuses and mastoid air cells demonstrate no acute or significant findings. The visualized orbits are grossly unremarkable. No skull fractures. Status post frontal craniotomy. There is intracranial atherosclerosis. IMPRESSION: 1. No acute findings. 2. Nonspecific white matter disease, typical of chronic microvascular disease. Please note that all CT scans at this facility use dose modulation, iterative reconstruction, and/or weight-based dosing when appropriate to reduce radiation dose to as low as reasonably achievable. Dictated by Leanne Carrasquillo MD @ Sep 18 2019 8:58PM Signed by Dr. Leanne Carrasquillo @ Sep 18 2019 8:58PM
--- NOTE | 2019-09-18 21:01 | CT ---
INDICATION: Low back pain TECHNIQUE: CT lumbar spine without contrast. COMPARISON: None FINDINGS: Vertebral alignment: Alignment is normal. Vertebrae: There are no fractures or suspicious bony lesions. Discs and facet joints: No significant degenerative disc disease. Mild multilevel degenerative facet disease. Extraspinal findings: Simple cyst on the right kidney. Prevertebral soft tissues and visualized retroperitoneum are otherwise unremarkable. IMPRESSION: Unremarkable lumbar spine CT. Please note that all CT scans at this facility use dose modulation, iterative reconstruction, and/or weight-based dosing when appropriate to reduce radiation dose to as low as reasonably achievable. Dictated by Leanne Carrasquillo MD @ Sep 18 2019 8:58PM Signed by Dr. Leanne Carrasquillo @ Sep 18 2019 9:01PM
--- NOTE | 2019-09-18 21:41 | EDM.PDOC ---
ED HPI GENERAL MEDICAL PROBLEM - General Chief Complaint: Neurological Problem Stated Complaint: PY NOT FEELING WELL Time Seen by Provider: 09/18/19 19:26 - History of Present Illness INITIAL COMMENTS - FREE TEXT/NARRATIVE: HISTORY AND PHYSICAL: History of present illness: This is a 68-year-old female with a history significant for a meningioma, valve replacement, currently on warfarin, kidney stones and kidney infections in the past, who presents the ER today secondary to confusion noted by the . Upon presentation to the ED the patient actually reports that her main concern is her lower back pain. Patient reports that she saw her doctor for back pain on Monday and was started on a muscle relaxant and tramadol. Patient reports she thinks her confusion is secondary to the muscle relaxant that she is taken. She reports that the medicines that she was prescribed by her doctor are not helping her back pain. reports that she had 1 episode of confusion earlier today that concerned him. He reports that she was asking about her granddaughter when her granddaughter was not actually there. He reports otherwise her mentation is back to normal. Patient reports that she has had lower back pain that started on Monday and has not been improving. reports that on Monday she was walking the track and pulling weeds and he thinks that she likely exacerbated her back pain by over exerting herself. Patient denies any recent fevers, shakes, chills, nausea, vomiting, diarrhea, chest pain, abdominal pain, dysuria, frequency, urgency. She reports that she has been having normal p.o. intake. Patient denies any history of hypertension, diabetes, liver problems. She reports that she does have a history of breast cancer. Patient is status post cholecystectomy. Patient denies any tobacco alcohol or drugs. Patient has no known drug allergies. Review of systems: As per history of present illness and below otherwise all systems reviewed and negative. Past medical history: As per history of present illness and as reviewed below otherwise noncontributory. Surgical history: As per history of present illness and as reviewed below otherwise noncontributory. Social history: No reported history of drug or alcohol abuse. Family history: As per history of present illness and as reviewed below otherwise noncontributory. Physical exam: Constitutional: Patient is oriented to person, place, and time. Appears well- developed and well-nourished. No distress. HEENT: Moist mucous membranes Head: Normocephalic and atraumatic Eyes: Right eye exhibits no discharge. Left eye exhibits no discharge. No scleral icterus Neck: Normal range of motion. No tracheal deviation present. Cardiovascular: Normal rate and regular rhythm. Pulmonary: Effort normal, no respiratory distress. Abdominal: No distention Musculoskeletal: Normal range of motion Neurologic: Alert and oriented to person, place and time. Skin: [place], warm and dry. Psychiatric: Normal mood and affect. Behavior is normal. Judgment and thought content normal. Nursing note and vital signs have been reviewed Patient is alert awake and oriented x4 in the ED. Patient is appropriate and is able to converse fully. Entire history has been obtained from the patient and appears to be currently at her baseline per her report and her . Patient has tenderness to palpation to her lower back. Patient has no C-spine T-spine or L-spine tenderness to palpation. Patient has tenderness palpation with flexion of her hips bilaterally. Patient's tenderness is greatest over her bilateral iliac crests. Diagnostics: CT scan of head was obtained secondary to her confusion. No acute pathology identified. CT scan of lumbar spine obtained secondary to her lower back pain. No evidence of acute pathology identified. Changes consistent with DJD. Patient's labs are unremarkable. Patient is currently on amoxicillin as prescribed by her doctor. Patient has few WBCs does not appear to have any symptoms consistent with a UTI. Patient is currently not confused I do not feel that antibiotics at this time would be warranted. Therapeutics: Lidoderm patch applied to back. Patient reports that she feels improved with the patch. Assessment and plan: 68-year-old female who presents the ER today secondary to lower back pain and episode of confusion. Patient's confusion is most likely secondary to the muscle relaxant that she was prescribed by her doctor. I have advised her to reduce the dose or stop the Flexeril altogether and I will initiate Lidoderm patch to see if that might help her pain. Imaging did not reveal any acute cause to her discomfort. Patient's pain is most likely secondary to muscle strain from overexertion that was described by her and her . Reassessment at the time of disposition demonstrates that the patient is in no acute distress. The patient has remained stable throughout the entire ED visit and is without objective evidence for acute process requiring urgent intervention or hospitalization. The patient is stable for discharge, counseling is provided as documented above, discussed symptomatic treatment and specific conditions for return. I have spoken with the patient/caregive and discussed todays findings, in addition to providing specific details for the plan of care. Questions are answered and there is agreement with the plan. - Related Data Allergies Allergy/AdvReac Type Severity Reaction Status Date / Time No Known Allergies Allergy Verified 09/18/19 19:28 Home Meds: Home Meds Albuterol [Ventolin HFA] 1 puff INH Q4H #1 inhaler 12/07/18 [Rx] Amiodarone [Cordarone] 200 mg PO BID 12/07/18 [History] Azithromycin [Zithromax] 250 mg PO ASDIRECTED #1 dosepk 12/07/18 [Rx] Codeine/Promethazine [Phenergan with Codeine] 5 ml PO Q6HR #1 cup 12/07/18 [Rx] Hydrocodone/Acetaminophen [Hydrocodon-Acetaminophen 5-325] 1 each PO ASDIRECTED 12/07/18 [History] Magnesium Oxide 400 mg PO ASDIRECTED 12/07/18 [History] Metoprolol Succinate [[place] Sprinkle] 100 mg PO ASDIRECTED 12/07/18 [History] Potassium Chloride 20 meq PO ASDIRECTED 12/07/18 [History] Warfarin [Coumadin] 2 mg PO DAILY 12/07/18 [History] Past Medical History HEENT History: Reports: Cataract, Impaired Vision, Retinal Detachment Other HEENT History: wears glasses, HX of Lichen Sclerosus Cardiovascular History: Reports: Hypertension Other Cardiovascular History: hx of aortic stenosis, moderate- asymptomatic Respiratory History: Reports: PE Other Respiratory History: states had PE following hysterectomy Gastrointestinal History: Reports: Cholelithiasis, Other (See Below) Other Gastrointestinal History: states occasional heartburn, takes TUMS Genitourinary History: Reports: Renal Calculus Other Genitourinary History: states passed kidney stone FOLLOW UP CLERK History: Reports: Musculoskeletal History: Reports: Arthritis, Fracture, Neck Pain, Chronic, Osteoarthritis Other Musculoskeletal History: states osteoarthritis of of hip, degenerative di sc disease of neck, hx of bilateral fx wrists, was told by Dr. Leonardo Raymundo in [facility] that her neck was "unstable" Neurological History: Reports: Other (See Below) Other Neuro History: occas. headaches/migranes...no treatment Psychiatric History: Reports: None Oncologic (Cancer) History: Reports: Breast Dermatologic History: Reports: Psoriasis Other Dermatologic History: states psoriasis is "mild" - Infectious Disease History Infectious Disease History: Reports: Chicken Pox - Past Surgical History Head Surgeries/Procedures: Reports: None HEENT Surgical History: Reports: Cataract Surgery, Detached Retina Cardiovascular Surgical History: Reports: Valve Replacement Other Cardiovascular Surgeries/Procedures: Aortic valve Female Surgical History: Reports: Breast Biopsy, Section, Hysterectomy Social & Family History - Family History Family Medical History: Noncontributory - Caffeine Use Caffeine Use: Reports: Coffee ED ROS GENERAL - Review of Systems Review Of Systems: Comprehensive ROS is negative, except as noted in HPI. ED EXAM, GENERAL - Physical Exam Exam: See Below Course - Vital Signs Last Recorded V/S: Last Vital Signs Temp 98.8 F 09/18/19 19:18 Pulse 84 09/18/19 19:18 Resp 20 09/18/19 19:18 BP 154/51 H 09/18/19 19:18 Pulse Ox 95 09/18/19 19:18 - Orders/Labs/Meds Orders: Active Orders 24 hr Category Date Time Status Sodium Chloride 0.9% [Saline Flush] Med 09/18/19 19:37 Active 10 ml FLUSH ASDIRECTED PRN Sodium Chloride 0.9% [Saline Flush] Med 09/18/19 19:37 Active 2.5 ml FLUSH ASDIRECTED PRN Saline Lock Insert [OM.PC] Stat Oth 09/18/19 19:38 Ordered Medication Orders Sodium Chloride (Saline Flush) 10 ml FLUSH ASDIRECTED PRN PRN Reason: Keep Vein Open Sodium Chloride (Saline Flush) 2.5 ml FLUSH ASDIRECTED PRN PRN Reason: Keep Vein Open Labs: Laboratory Tests 09/18/19 09/18/19 09/18/19 Range/Units 19:33 19:35 19:35 WBC 6.29 (4.0-11.0) K/uL RBC 4.44 (4.30-5.90) M/uL Hgb 13.1 (12.0-16.0) g/dL Hct 38.7 (36.0-46.0) % MCV 87.2 (80.0-98.0) fL MCH 29.5 (27.0-32.0) pg MCHC 33.9 (31.0-37.0) g/dL RDW Std Deviation 43.4 (28.0-62.0) fl RDW Coeff of Ana Maria 14 (11.0-15.0) % Plt Count 148 L (150-400) K/uL MPV 10.20 (7.40-12.00) fL Neut % (Auto) 75.9 (48.0-80.0) % Lymph % (Auto) 15.3 L (16.0-40.0) % Noble % (Auto) 8.1 (0.0-15.0) % Eos % (Auto) 0.5 (0.0-7.0) % Baso % (Auto) 0.2 (0.0-1.5) % Neut # (Auto) 4.8 (1.4-5.7) K/uL Lymph # (Auto) 1.0 (0.6-2.4) K/uL Noble # (Auto) 0.5 (0.0-0.8) K/uL Eos # (Auto) 0.0 (0.0-0.7) K/uL Baso # (Auto) 0.0 (0.0-0.1) K/uL Nucleated RBC % 0.0 /100WBC Nucleated RBCs # 0 K/uL INR 1.24 Sodium (136-145) mmol/L Potassium (3.5-5.1) mmol/L Chloride (98-107) mmol/L Carbon Dioxide (21.0-32.0) mmol/L BUN (7.0-18.0) mg/dL Creatinine (0.6-1.0) mg/dL Est Cr Clr Drug Dosing mL/min Estimated GFR (MDRD) ml/min Glucose (74-106) mg/dL POC Glucose 94 (60-110) mg/dL Calcium (8.5-10.1) mg/dL Total Bilirubin (0.2-1.0) mg/dL AST (15-37) IU/L ALT (14-63) IU/L Alkaline Phosphatase (46-116) U/L Total Protein (6.4-8.2) g/dL Albumin (3.4-5.0) g/dL Globulin (2.6-4.0) g/dL Albumin/Globulin Ratio (0.9-1.6) Urine Color Urine Appearance Urine pH (5.0-8.0) Ur Specific [place] (1.001-1.035) Urine Protein (NEGATIVE) mg/dL Urine Glucose (UA) (NEGATIVE) mg/dL Urine Ketones (NEGATIVE) mg/dL Urine Occult Blood (NEGATIVE) Urine Nitrite (NEGATIVE) Urine Bilirubin (NEGATIVE) Urine Urobilinogen (<2.0) EU/dL Ur Leukocyte Esterase (NEGATIVE) Urine RBC (0-2/HPF) Urine WBC (0-5/HPF) Ur Epithelial Cells (NONE-FEW) Urine Bacteria (NEGATIVE) Urine Mucus (NONE-MOD) 09/18/19 09/18/19 Range/Units 19:35 20:44 WBC (4.0-11.0) K/uL RBC (4.30-5.90) M/uL Hgb (12.0-16.0) g/dL Hct (36.0-46.0) % MCV (80.0-98.0) fL MCH (27.0-32.0) pg MCHC (31.0-37.0) g/dL RDW Std Deviation (28.0-62.0) fl RDW Coeff of [place] (11.0-15.0) % Plt Count (150-400) K/uL MPV (7.40-12.00) fL Neut % (Auto) (48.0-80.0) % Lymph % (Auto) (16.0-40.0) % Noble % (Auto) (0.0-15.0) % Eos % (Auto) (0.0-7.0) % Baso % (Auto) (0.0-1.5) % Neut # (Auto) (1.4-5.7) K/uL Lymph # (Auto) (0.6-2.4) K/uL Noble # (Auto) (0.0-0.8) K/uL Eos # (Auto) (0.0-0.7) K/uL Baso # (Auto) (0.0-0.1) K/uL Nucleated RBC % /100WBC Nucleated RBCs # K/uL INR Sodium 134 L (136-145) mmol/L Potassium 3.5 (3.5-5.1) mmol/L Chloride 98 (98-107) mmol/L Carbon Dioxide 27.8 (21.0-32.0) mmol/L BUN 15 (7.0-18.0) mg/dL Creatinine 1.1 H (0.6-1.0) mg/dL Est Cr Clr Drug Dosing 34.18 mL/min Estimated GFR (MDRD) 49.1 ml/min Glucose 103 (74-106) mg/dL POC Glucose (60-110) mg/dL Calcium 7.8 L (8.5-10.1) mg/dL Total Bilirubin 0.6 (0.2-1.0) mg/dL AST 90 H (15-37) IU/L ALT 105 H (14-63) IU/L Alkaline Phosphatase 149 H (46-116) U/L Total Protein 7.1 (6.4-8.2) g/dL Albumin 3.2 L (3.4-5.0) g/dL Globulin 3.9 (2.6-4.0) g/dL Albumin/Globulin Ratio 0.8 L (0.9-1.6) Urine Color YELLOW Urine Appearance CLEAR Urine pH 7.0 (5.0-8.0) Ur Specific [place] <= 1.005 (1.001-1.035) Urine Protein NEGATIVE (NEGATIVE) mg/dL Urine Glucose (UA) NEGATIVE (NEGATIVE) mg/dL Urine Ketones NEGATIVE (NEGATIVE) mg/dL Urine Occult Blood TRACE-INTACT H (NEGATIVE) Urine Nitrite NEGATIVE (NEGATIVE) Urine Bilirubin NEGATIVE (NEGATIVE) Urine Urobilinogen 1.0 (<2.0) EU/dL Ur Leukocyte Esterase SMALL H (NEGATIVE) Urine RBC 2-4 (0-2/HPF) Urine WBC 5-8 (0-5/HPF) Ur Epithelial Cells OCCASIONAL (NONE-FEW) Urine Bacteria FEW (NEGATIVE) Urine Mucus LIGHT (NONE-MOD) Meds: Medications Generic Name Dose Route Start Last Admin Trade Name Freq PRN Reason Stop Dose Admin Sodium Chloride 10 ml 09/18/19 19:37 Saline Flush FLUSH ASDIRECTED PRN Keep Vein Open Sodium Chloride 2.5 ml 09/18/19 19:37 Saline Flush FLUSH ASDIRECTED PRN Keep Vein Open Discontinued Medications Generic Name Dose Route Start Last Admin Trade Name Freq PRN Reason Stop Dose Admin Sodium Chloride 1,000 mls @ 999 mls/hr 09/18/19 19:37 09/18/19 19:53 Normal Saline IV 09/18/19 20:37 999 mls/hr .Bolus ONE Administration Lidocaine 700 mg 09/18/19 19:39 09/18/19 19:53 Lidoderm 5% TOP 09/18/19 19:40 700 mg ONETIME ONE Administration Departure - Departure Time of Disposition: 21:41 Disposition: Home, Self-Care 01 Condition: Good Clinical Impression: Low back pain, Confusion, Medication reaction - Discharge Information Instructions: Back Injury Prevention, [id number], Acute Back Pain, Adult Referrals: Eric Bell MD [Primary Care Provider] - Forms: ED Department Discharge Additional Instructions: Your work-up in the ER today did not reveal any pathological cause to your confusion or your back pain. You will be started on Lidoderm patches to assist with your back discomfort. Please decrease or stop taking your muscle relaxant as this can increase your confusion. Please make an appointment to follow-up with your family doctor in 1 to 2 days for reevaluation. The following information is given to patients seen in the emergency department who are being discharged to home. This information is to outline your options for follow-up care. We provide all patients seen in our emergency department with a follow-up referral. The need for follow-up, as well as the timing and circumstances, are variable depending upon the specifics of your emergency department visit. If you don't have a primary care physician on staff, we will provide you with a referral. We always advise you to contact your personal physician following an emergency department visit to inform them of the circumstance of the visit and for follow-up with them and/or the need for any referrals to a consulting specialist. The emergency department will also refer you to a specialist when appropriate. This referral assures that you have the opportunity for follow-up care with a specialist. All of these measure are taken in an effort to provide you with optimal care, which includes your follow-up. Under all circumstances we always encourage you to contact your private physician who remains a resource for coordinating your care. When calling for follow-up care, please make the office aware that this follow-up is from your recent emergency room visit. If for any reason you are refused follow-up, please contact the [facility] Emergency Department at and asked to speak to the emergency department charge nurse. Sepsis Event Note (ED) - Evaluation Sepsis Screening Result: No Definite Risk - Focused Exam Vital Signs: Vital Signs Temp Pulse Resp BP Pulse Ox 09/18/19 19:18 98.8 F 84 20 154/51 H 95 - My Orders Last 24 Hours: My Active Orders 09/18/19 19:37 Sodium Chloride 0.9% [Saline Flush] 10 ml FLUSH ASDIRECTED PRN Sodium Chloride 0.9% [Saline Flush] 2.5 ml FLUSH ASDIRECTED PRN 09/18/19 19:38 Saline Lock Insert [OM.PC] Stat - Assessment/Plan Last 24 Hours: My Active Orders 09/18/19 19:37 Sodium Chloride 0.9% [Saline Flush] 10 ml FLUSH ASDIRECTED PRN Sodium Chloride 0.9% [Saline Flush] 2.5 ml FLUSH ASDIRECTED PRN 09/18/19 19:38 Saline Lock Insert [OM.PC] Stat
[2019-09-19 03:43] VITALS: BP 136/52; PULSE 81
== END 2019-09-18 22:02 | disposition home or self-care (01) ==
LOC: MW.ED 19:03
DX: R41.0 Disorientation, unspecified (principal); T40.4X5A Adverse effect of other synthetic narcotics, initial encounter; M54.5 Low back pain; I10 Essential (primary) hypertension; Z86.711 Personal history of pulmonary embolism; Z79.01 Long term (current) use of anticoagulants; Z79.899 Other long term (current) drug therapy
CPT/HCPCS: 36415; 70450; 72131; 80053; 81001; 82962; 85025; 85610; 93005; 99284; A9270; J7030; 93010; 99283

== ENCOUNTER 2023-07-27 19:21 | Emergency (ER) | payer MEDICARE, BC | END 2023-07-27 20:00 | disposition left against medical advice (07) | LOC: MW.ED 19:21 | DX: Z53.21 Procedure and treatment not carried out due to patient leaving prior to being seen by health care provider (principal) ==